=== PATIENT | male | born 1990 | race African-American/Black ===

== ENCOUNTER 2025-06-11 20:36 | Emergency (ER) | payer MEDICAID, OTHER ==
[~2025-06-11] VITALS: Ht 190.5 cm; Wt 97.2 kg
[2025-06-11 22:06] VITALS: BP 121/73; TEMP 98.4
[2025-06-11 22:49] VITALS: PULSE 66; RESP 14; O2SAT 99
[2025-06-11] MEDS ORDERED: DOXY-286 PO (22:54)
--- NOTE | 2025-06-11 22:55 | ED.PDOC ---
History of Present Illness(SKN HPI Comments PT COMES WITH C/C OF LEFT SIDED FACIAL PAIN, POSSIBLE INGROWN HAIR CAUSING SWELLING denies fever, or injury Chief Complaint: Face pain Time Seen by MD: 20:45 History of Present Illness: Nurses Notes, Medications, Allergies Allergies: Coded Allergies: NO KNOWN ALLERGIES (Unverified , 06/11/25) Information Source: Patient Mode of Arrival: Ambulatory Past Medical History PAST MEDICAL HISTORY: Denies Surgical History: Denies all surgeries Family History Family History: Reviewed,noncontributory to illness, No family hx of Cancer, No family hx of DM, No family hx of Heart montse, No family hx of HTN, No family hx ofKidney montse, No family hx of Liver montse, No family hx of Lung montse, No family hx of Stroke Social History Smoker: Non-Smoker Alcohol: Denies ETOH Use Drugs: Denies Drug Use All Other Systems: Reviewed and Negative (see hpi) Physical Exam General Appearance: No Apparent Distress, Normal HEENT: Normal ENT Inspection, Pharynx Normal, TMs Normal Neck: Full Range of Motion, Non-Tender, Normal, Normal Inspection Respiratory: Lungs Clear, No Respiratory Distress, Normal Breath Sounds Cardiovascular: No Murmur, Normal Peripheral Pulses, Regular Rate/Rhythm Breast Exam: Deferred Gastrointestinal: Non Tender, Soft Genitalia: Deferred Pelvic: Deferred Rectal: Deferred Extremities: Normal capillary refill, Normal range of motion Musculoskeletal : Apperance: Normal Neurologic: Alert, No Motor Deficits, Normal Affect, Normal Mood, No Sensory Deficits Cerebellar Function: Normal Reflexes: Normal Skin: Dry, Normal Color, Warm, Wounds (golf ball size lump lower jaw line with scant white drainage ) Lymphatic: No Adenopathy Was a procedure done? Was a procedure done?: No Differential Diagnosis (INTG) Differential Diagnosis: Cellulitis Differential Diagnosis: Abscess X-Ray, Labs, Meds, VS Vital Signs Date Time Temp Pulse Resp B/P (MAP) Pulse Ox O2 Delivery O2 Flow Rate FiO2 06/11/25 22:49 66 14 99 Room Air 06/11/25 22:06 98.4 66 14 121/73 (89) 99 98.4 06/11/25 20:38 98.0 81 16 121/80 99 98.0 Time of 1ST Reevaluation: 20:45 Reevaluation 1ST: Unchanged Time of 2ND Reevaluation: 22:54 Reevaluation 2ND: Improved Patient Education/Counseling: Diagnosis, Treatment, Need For Follow Up Family Education/Counseling: No Family Present SEPSIS Sepsis Screen Date sepsis recognized/suspect: Jun 11, 2025 Time Sepsis recognized/suspect: 2040 Recent Procedure: No On Antibiotic Therapy: No Respiratory Rate >20: No Heart Rate >90: No Temp<36 C (96.8 F) or >38.3 C: No SBP <90 or MAP <65 mmHG: No New Acute Mental Status Change: No Is the patient on CPAP, BIPAP,: No Vital Signs Date Time Temp Pulse Resp B/P (MAP) Pulse Ox O2 Delivery O2 Flow Rate FiO2 06/11/25 22:49 66 14 99 Room Air 06/11/25 22:06 98.4 66 14 121/73 (89) 99 98.4 06/11/25 20:38 98.0 81 16 121/80 99 98.0 Departure 1 Departure Time of Disposition: 22:53 Impression: Primary Impression: Facial abscess Disposition: 01 HOME / SELF CARE / HOMELESS Condition: Stable e-Prescriptions Doxycycline Hyclate (DOXYCYCLINE HYCLATE) 100 Mg Tab 1 TAB PO BID for 7 Days, #14 TAB Prov: PHILLIP RIOS 06/11/25 Discharged With: Self Critical Care Note Critical Care Time?: No Stability Stability form required: PHILLIP Rey Jun 11, 2025 22:55
== END 2025-06-11 23:03 | disposition home or self-care (01) ==
LOC: ER 20:36
DX: L02.01 Cutaneous abscess of face (principal)